=== PATIENT | male | born 2000 | race African-American/Black ===

== ENCOUNTER 2019-01-05 10:50 | Emergency (ER) | payer OTHER ==
[~2019-01-05] VITALS: Ht 177.8 cm; Wt 63.5 kg
[~2019-01-05 10:50] MED LIST: ABILIFY PO; ADDERALL 5 MG TA5 M1 PO; ADDERALL XR 1010 MG PO; ADHD MEDICATION; ALLERGY MEDICATION; CLARITIN10 M2 PO
[2019-01-05] MEDS ORDERED: TRILEPTAL600 MG PO (11:58)
[2019-01-05 13:02] VITALS: BP 122/68
== END 2019-01-05 13:04 | disposition home or self-care (01) ==
LOC: ER 10:50
DX: S00.83XA Contusion of other part of head, initial encounter (principal); R56.9 Unspecified convulsions; F90.9 Attention-deficit hyperactivity disorder, unspecified type; F17.210 Nicotine dependence, cigarettes, uncomplicated; W18.39XA Other fall on same level, initial encounter; Y93.89 Activity, other specified; Y92.512 Supermarket, store or market as the place of occurrence of the external cause; Y99.0 Civilian activity done for income or pay